=== PATIENT | female | born 2000 | race Caucasian/White ===

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

== ENCOUNTER 2022-04-28 22:34 | Emergency (ER) | payer BC ==
[~2022-04-28] VITALS: Ht 175.3 cm; Wt 122.7 kg
[~2022-04-28 22:34] MED LIST: NEXPLANON68 MG ID
[2022-04-28 23:20] VITALS: BP 135/95
== END 2022-04-28 23:21 | disposition home or self-care (01) ==
LOC: ED 22:34
DX: R22.0 Localized swelling, mass and lump, head (principal); T45.2X5A Adverse effect of vitamins, initial encounter; Z28.310 Unvaccinated for COVID-19

== ENCOUNTER 2025-01-01 23:44 | Emergency (ER) | payer MEDICAID ==
[~2025-01-01] VITALS: Wt 131.8 kg
[~2025-01-01 23:44] MED LIST changes: +LEVOTHYROXIN0.025 MG PO
[2025-01-01] MEDS ORDERED: Cyclobenzaprine 10 MG TAB PO ONE (23:45)
[2025-01-01] MEDS ORDERED: Ketorolac 30 MG/ML VIAL IM ONE (23:45)
[2025-01-02] MEDS ORDERED: Ketorolac 30 MG/ML VIAL IV ONE (00:15)
[2025-01-02] MEDS ORDERED: CYCLOBENZAPRINE10 M1 PO (00:18)
[2025-01-02 01:00] VITALS: BP 148/78
== END 2025-01-02 01:00 | disposition home or self-care (01) ==
LOC: ED 23:44
DX: S29.012A Strain of muscle and tendon of back wall of thorax, initial encounter (principal); X58.XXXA Exposure to other specified factors, initial encounter; Y93.89 Activity, other specified
CPT/HCPCS: J1885